=== PATIENT | female | born 1940 | race African-American/Black ===

== ENCOUNTER → 2018-01-19 | Outpatient (CLI) | payer MEDICARE, OTHER ==
--- NOTE | 2018-01-20 08:51 | Diagnostic Imaging Report ---
TECHNIQUE: Magnetic resonance imaging of the LEFT SHOULDER was performed WITHOUT injected contrast. COMPARISON: None available. HISTORY: Pain FINDINGS: MUSCLES AND TENDONS: Rotator Cuff: Tendons: Full thickness full width tear of the supraspinatus tendon with retraction to the glenohumeral joint measuring approximately 4 cm. The tear propagates posteriorly as a full-thickness tear into the anterior infraspinatus and as a partial-thickness articular sided tear into the posterior infraspinatus. Partial-thickness tearing of the subscapularis. Muscles: Moderate atrophy of the supraspinatus. Biceps Tendon: The long head biceps tendon is torn. GLENOHUMERAL JOINT: Glenoid Labrum: Superior and posterior labral tearing. Articular Cartilage: Partial thickness cartilage loss. AC JOINT AND ACROMION: Mild hypertrophic degenerative changes of the acromioclavicular joint. Subacromial spur formation. BONE: No acute fracture. SOFT TISSUES: Subacromial subdeltoid bursal fluid. IMPRESSION: Full-thickness tearing of the supraspinatus and anterior infraspinatus tendon as above with retraction and atrophy. Partial-thickness tearing of the subscapularis. Partial tearing of the long head biceps tendon. Glenohumeral degenerative arthrosis. Signed by: Dr. Kobi Paulino M.D. on 01/20/2018 8:47 AM
== END ==
LOC: MRI 16:50
PROVIDERS: ATTEND Specialist
DX: S46.022A Laceration of muscle(s) and tendon(s) of the rotator cuff of left shoulder, initial encounter (principal)